=== PATIENT | female | born 1930 | race Caucasian/White ===

== ENCOUNTER 2018-03-24 19:15 | Emergency (ER) | payer MEDICARE, OTHER ==
--- NOTE | 2018-03-24 19:42 | ED ---
Lower Extremity - HPI Summary HPI Summary: 87-year-old female presents with left hip pain for the past day. She states that every once her hips hurts. [facility] by [facility]. She has dementia and is alert and oriented 1 at baseline. No change in her mental status. Unsure hit her head. She is [facility] only. Was sent due to the amount of pain of her hip. She is currently complaining of no pain of her left hip. No deformity noted. Able to move her extremity around. No other injury noted. - History of Current Complaint Chief Complaint: EDExtremityLower Stated Complaint: FALL Time Seen by Provider: 03/24/18 19:30 Pain Intensity: 0 - Allergies/Home Medications Home Medications: Home Medications Amiodarone TAB* [Cordarone TAB*] 100 mg PO DAILY 03/24/18 [History Confirmed 06/03] Aspirin EC TAB* [Ecotrin EC Low Dose 81 MG*] 81 mg PO DAILY 03/24/18 [History Confirmed 03/24/18] Levothyroxine TAB* [Synthroid TAB*] 75 mcg PO DAILY 03/24/18 [History Confirmed 03/24/18] Multivitamins/Minerals TAB* [Theragran/minerals TAB*] 1 tab PO DAILY 03/24/18 [ History Confirmed 03/24/18] Sertraline* [Zoloft*] 75 mg PO DAILY 03/24/18 [History Confirmed 03/24/18] Torsemide 2.5 mg PO DAILY 03/24/18 [History Confirmed 03/24/18] PMH/Surg Hx/FS Hx/Imm Hx Endocrine/Hematology History: Reports: Hx Thyroid Disease Cardiovascular History: Reports: Hx Atrial Fibrillation Musculoskeletal History: Denies: Hx Osteoporosis - Cancer History Hx Radiation Therapy: No Infectious Disease History: No Infectious Disease History: Denies: Traveled Outside the [place] in Last 30 Days - Family History Known Family History: Positive: Unknown - Social History Alcohol Use: None Substance Use Type: Reports: None Smoking Status (MU): Never Smoked Tobacco Review of Systems Negative: Fever Negative: Chest Pain Negative: Shortness Of Breath Positive: Myalgia - left hip pain All Other Systems Reviewed And Are Negative: Yes Physical Exam Triage Information Reviewed: Yes Vital Signs On Initial Exam: Initial Vitals Temp Pulse Resp BP Pulse Ox 97.6 F 75 18 160/75 94 03/24/18 19:23 03/24/18 19:23 03/24/18 19:23 03/24/18 19:23 03/24/18 19:23 Vital Signs Reviewed: Yes Appearance: Positive: Well-Appearing Skin: Positive: Warm, Dry Head/Face: Positive: Normal Head/Face Inspection, Other - no Step off, raccoon eyes, whitaker sign Eyes: Positive: Normal, EOMI, LISSET, Conjunctiva Clear, Other: - right eye has white area noted near cornea ENT: Positive: Pharynx normal Respiratory/Lung Sounds: Positive: Clear to Auscultation, Breath Sounds Present Cardiovascular: Positive: Normal, RRR Abdomen Description: Positive: Nontender, Soft Bowel Sounds: Positive: Present Musculoskeletal: Positive: Normal Neurological: Positive: Sensory/Motor Intact, CN Intact II-III. Negative: Alert , Oriented to Person Place, Time - X1 at baseline Psychiatric: Positive: Normal Diagnostics - Vital Signs Vital Signs Temp Pulse Resp BP Pulse Ox 03/24/18 19:23 97.6 F 75 18 160/75 94 - Laboratory Lab Statement: Any lab studies that have been ordered have been reviewed, and results considered in the medical decision making process. - Radiology hip Xray Interpretation: No Acute Changes Radiology Interpretation Completed By: Radiologist Lower Extremity Course/Dx - Course Course Of Treatment: 87-year-old female presents with left hip pain for the past day. She states that every once her hips hurts. She was [facility]. She has dementia and is alert and oriented 1 at baseline. No change in her mental status. Unsure hit her head. She is [facility] only. Was sent due to the amount of pain of her hip. She is currently complaining of no pain of her left hip. No deformity noted. Able to move her extremity around. No other injury noted. On exam is at baseline mentation. No head contusion noted. Nontender neck. Tenderness of left hip. Full range of motion of hip. Neurovascularly intact. Being [facility] only will not get head imaging of the head. She got x-ray of the hip is normal. We' ll have return to [facility]. patient understands agrees with plan. - Diagnoses Differential Diagnosis/HQI/PQRI: Positive: Fracture (Closed), Sprain, Strain Provider Diagnoses: Left hip pain Discharge - Sign-Out/Discharge Documenting (check all that apply): Discharge/Admit/Transfer - Discharge Plan Condition: Good Disposition: HOME Patient Education Materials: Hip Contusion (ED) Referrals: No Primary Care Phys,NOPCP [Primary Care Provider] - Additional Instructions: ice, elevate Take tyenlol every 6 hours for pain as needed follow up with primary within 5 days Return to ED if develop any new or worsening symptoms - Billing Disposition and Condition Condition: GOOD Disposition: Home
--- NOTE | 2018-03-24 20:21 | RAD ---
Indication: Left thigh injury. 2 views of left femur demonstrates no fracture. No other bone or joint abnormality is noted. IMPRESSION: No fracture of the left femur is noted.
--- NOTE | 2018-03-24 20:21 | RAD ---
Indication: Left hip pain. AP view of both hips, single view the pelvis demonstrates degenerative changes of both hips. Pelvic ring is intact. IMPRESSION: Degenerative changes of left hip without evidence of fracture.
[2018-03-24 20:44] VITALS: BP 144/89
== END 2018-03-24 20:55 | disposition home or self-care (01) ==
LOC: ED 19:15
DX: M25.552 Pain in left hip (principal); Z86.79 Personal history of other diseases of the circulatory system
CPT/HCPCS: 99282